=== PATIENT | male | born 2000 ===

== ENCOUNTER 2024-04-20 16:26 | Outpatient (CLI) | payer OTHER, SELFPAY ==
[2024-04-20 17:14] LABS: Hematocrit 49.3 % (42.0-52.0); Hemoglobin 16.3 g/dL (14.0-18.0); Mean Corpuscular HGB Conc 33.1 g/dl (32-36); Mean Corpuscular Hemoglobin 27.4 pg (26-34); Mean Platelet Volume 10.4 fl (7.4-10.4); Platelet Count Result 281 k/mm3 (150-375); Red Blood Count 5.94 M/mm3 (4.6-6.20); White Blood Count 10.4 K/mm3 (4.5-10.0)
[2024-04-20 17:59] LABS: Erythrocyte Sedimentation Rate 1 mm/hr (0-20)
[2024-04-20 20:23] LABS: Alanine Aminotransferase 44 U/L (6-50); Albumin Level 4.5 g/dL (3.5-5.1); Alkaline Phosphatase 47 U/L (38-126); Anion Gap 5 mmol/L (4-12); Aspartate Amino Transferase 31 U/L (17-59); Bilirubin,Total 0.7 mg/dL (0.2-1.3); Blood Urea Nitrogen 18 mg/dL (9-20); CRP < 0.5 mg/dL (<1.0); Calcium 9.4 mg/dL (8.4-10.2); Carbon Dioxide 29 mmol/L (22-30); Chloride 103 mmol/L (98-107); Estimated Glomerular Filt Rate > 60; Glucose 87 mg/dL (65-110); Potassium 4.5 mmol/L (3.4-5.0); Sodium 137 mmol/L (137-145)
== END 2024-04-20 16:27 | disposition home or self-care (01) ==
PROVIDERS: Visit Provider Nurse Practitioner
DX: R14.0 Abdominal distension (gaseous) (principal); R10.31 Right lower quadrant pain; R19.8 Other specified symptoms and signs involving the digestive system and abdomen
CPT/HCPCS: 36415; 80053; 82784; 84443; 85027; 85652; 86140; 86364

== ENCOUNTER 2025-04-06 18:32 | Emergency (ER) | payer OTHER, SELFPAY ==
--- NOTE | ~2025-04-06 | XR_ITS ---
EXAMINATION: XR chest 2V 04/06/2025 18:55 INDICATION: Chest pain PROCEDURE: 2 view chest COMPARISON: No prior studies for comparison. FINDINGS: The lungs are clear. The cardiomediastinal silhouette is within normal limits. There are no pleural effusions. There is no pneumothorax suspected. IMPRESSION: 1: NO ACUTE CARDIOPULMONARY DISEASE. Reviewed, dictated and finalized at location O. CAL DRIVER
--- NOTE | 2025-04-06 18:34 | ECG_ITS ---
Test Date: 2025-04-06 18:46:30 Measurements Intervals [place] Rate: 89 P: 66 [place]: 132 QRS: 79 QRSD: 93 T: 60 QT: 331 QTc: 404 Interpretive Statements SINUS RHYTHM MINIMAL Q WAVES- ANTEROLAT/INF LEADS BORDERLINE ECG No previous ECG available for comparison Electronically Signed On 04-06-2025 18:59:42 EDUCATIONAL ADVISER by oJhn Hale D.O.
[2025-04-06 18:59] LABS: Hematocrit 49.1 % (42.0-52.0); Hemoglobin 16.9 g/dL (14.0-18.0); Immature Granulocyte Percent A 0.2 % (0-0.5); Lymphocytes Absolute Auto 4.20 K/mm3 (0.9-3.2); Mean Corpuscular HGB Conc 34.4 g/dl (32-36); Mean Corpuscular Hemoglobin 27.9 pg (26-34); Mean Corpuscular Volume 81.2 fl (80-100); Nucleated Red Blood Cells Absolute Auto 0.000 K/mm3 (0.0-0.012); Nucleated Red Blood Cells Perc 0.0 % (0.0-0.2); Platelet Count Result 297 k/mm3 (150-375); Red Blood Count 6.05 M/mm3 (4.6-6.20); White Blood Count 10.1 K/mm3 (4.5-10.0)
[2025-04-06 19:09] LABS: Alanine Aminotransferase 24 U/L (6-50); Albumin Level 5.0 g/dL (3.5-5.1); Alkaline Phosphatase 46 U/L (38-126); Anion Gap 12 mmol/L (4-12); Aspartate Amino Transferase 32 U/L (17-59); Bilirubin,Total 1.0 mg/dL (0.2-1.3); Blood Urea Nitrogen 17 mg/dL (9-20); Calcium 9.2 mg/dL (8.4-10.2); Carbon Dioxide 24 mmol/L (22-30); Chloride 101 mmol/L (98-107); Estimated Glomerular Filt Rate > 60; Glucose 97 mg/dL (65-110); Lipase 45 U/L (23-300); Potassium 4.1 mmol/L (3.4-5.0); Sodium 137 mmol/L (137-145); Total Protein 8.6 g/dL (6.3-8.2)
[2025-04-06 19:20] VITALS: BP 146/89; PULSE 78; RESP 18; TEMP 36.6; O2SAT 100
[2025-04-06 19:21] LABS: Troponin I < 0.012 ng/mL (0.000-0.034)
[2025-04-06 19:32] LABS: INR 1.0; Prothrombin Time 13.6 Seconds (11.1-14.7)
[2025-04-06 19:33] LABS: Partial Thromboplastin Time 29.2 Seconds (22.3-36.8)
--- NOTE | 2025-04-06 22:00 | ED_ITS ---
HPI - Chest Pain General Chief Complaint: Chest Pain Stated Complaint: left sided chest pain, left arm pain, sob Time Seen by Provider: 04/06/25 20:58 Source: patient Mode of arrival: ambulatory Limitations: no limitations History of Present Illness HPI narrative: This is a 24-year-old male that presents to the ER for several complaints. Reports left sided chest pain, arm pain, shortness of breath. Reports he has had some trouble with anxiety attacks. He has trouble with gas and constipation. Related Data Home Medications ?Medication ?Instructions ?Recorded ?Confirmed ?Last Taken ?Type No Home Medications 04/20/24 Unknown H istory Allergies Allergy/AdvReac Type Severity Reaction Status Date / Time No Known Allergies Allergy Unverified 04/20/24 15:13 Review of Systems 2 Review of Systems: All systems reviewed & are unremarkable except as noted in HPI and below PMFSH Social History Social History Smoking status: Former smoker Exam 2 Narrative: GENERAL: Well-appearing, well-nourished, and in no acute distress. HEAD: Normocephalic, atraumatic. EYES: PERRLA and EOMI. ENT: Nares clear, no rhinorrhea or epistaxis. Mucous membranes moist. Oropharynx without tonsillar hypertrophy exudate or other lesions. Bilateral TMs pearly walker non-bulging NECK: Supple. No adenopathy or masses. CHEST: Clear to auscultation. No respiratory distress. No wheezes rales or rhonchi HEART: Regular rate and rhythm. No murmur heard. Normal peripheral pulses. EXTREMITIES: Normal range of motion. No edema. SKIN: Warm, dry, no rash. NEURO: No focal deficits. Alert and oriented x3. PSYCH: Normal mood and affect Course Vital Signs Vital signs: Vital Signs Temperature 98 F 04/06/25 19:20 Pulse Rate 78 04/06/25 19:20 Respiratory Rate 18 04/06/25 19:20 Blood Pressure 146/89 H 04/06/25 19:20 Pulse Oximetry 100 04/06/25 19:20 Oxygen Delivery Room Air 04/06/25 19:20 Temperature 98 F 04/06/25 19:20 Pulse Rate 78 04/06/25 19:20 Respiratory Rate 18 04/06/25 19:20 Blood Pressure 146/89 H 04/06/25 19:20 Pulse Oximetry 100 04/06/25 19:20 Oxygen Delivery Room Air 04/06/25 19:20 [facility] Narrative Medical decision making narrative: Patient presents the emergency department for episodes of chest pain, shortness of breath, dizziness. Patient patient is afebrile and nontoxic appearing. His vitals are stable. Cbc and metabolic panel without concerning findings. EKG with changes of likely early repolarization, baseline and 3 hour troponin are negative. D-dimer is not elevated. Chest x-ray without acute cardiopulmonary abnormality. Patient updated on his workup and agrees with plan of care. Close follow-up with PCP Differential Diagnosis Differential Diagnosis: Angina, PE anxiety, muscle strain, pleurisy, pneumonia, pneumothorax Lab Data [facility] Lab Attestation statement: I personally reviewed the patient's lab results. 04/06/25 18:51 04/06/25 18:51 Labs: Lab Results 04/06/25 04/06/25 Range/Units 18:51 23:24 WBC 10.1 H (4.5-10.0) K/mm3 RBC 6.05 (4.6-6.20) M/mm3 Hgb 16.9 (14.0-18.0) g/dL Hct 49.1 (42.0-52.0) % MCV 81.2 (80-100) fl MCH 27.9 (26-34) pg MCHC 34.4 (32-36) g/dl RDW 12.7 (11.5-14.5) % Plt Count 297 (150-375) k/mm3 MPV 9.2 (7.4-10.4) fl Immature Gran % (Auto) 0.2 (0-0.5) % Neut % (Auto) 48.3 (45.5-73.1) % Lymph % (Auto) 41.5 (18.3-44.2) % Meade % (Auto) 6.2 (2.6-8.5) % Eos % (Auto) 3.2 (0-4.4) % Baso % (Auto) 0.6 (0.2-1.2) % Lymph # (Auto) 4.20 H (0.9-3.2) K/mm3 Meade # (Auto) 0.6 (0.1-0.6) K/mm3 Eos # (Auto) 0.3 (0-0.3) K/mm3 Baso # (Auto) 0.1 (0.0-0.1) K/mm3 Abs Immat Gran (auto) 0.02 (0.00-0.031) K/mm3 Absolute Neuts (auto) 4.9 (1.3-6.7) K/mm3 Absolute Nucleated RBC 0.000 (0.0-0.012) K/mm3 Nucleated RBC % 0.0 (0.0-0.2) % PT 13.6 (11.1-14.7) Seconds INR 1.0 APTT 29.2 (22.3-36.8) Seconds D-Dimer < 0.27 (<0.48) ug/mL Sodium 137 (137-145) mmol/L Potassium 4.1 (3.4-5.0) mmol/L Chloride 101 (98-107) mmol/L Carbon Dioxide 24 (22-30) mmol/L Anion Gap 12 (4-12) mmol/L BUN 17 (9-20) mg/dL Creatinine 0.80 (0.7-1.3) mg/dL Estim Creat Clear Calc Not Reportable Estimated GFR > 60 (59 - ) Glucose 97 (65-110) mg/dL Calcium 9.2 (8.4-10.2) mg/dL Total Bilirubin 1.0 (0.2-1.3) mg/dL AST 32 (17-59) U/L ALT 24 (6-50) U/L Alkaline Phosphatase 46 (38-126) U/L Troponin I < 0.012 < 0.012 (0.000-0.034) ng/mL Total Protein 8.6 H (6.3-8.2) g/dL Albumin 5.0 (3.5-5.1) g/dL Lipase 45 (23-300) U/L Imaging Data Radiologist's impression: ITS Impressions Chest X-Ray 04/06/25 18:58 IMPRESSION: 1: NO ACUTE CARDIOPULMONARY DISEASE. ECG Data EKG #1: ECG completion date: 04/06/25 normal rate, sinus rhythm, ST elevation (early repolarization) and normal QT Critical Care Time Critical Care Time Critical Care Time: No Discharge Plan Discharge Clinical Impression: Chest pain Qualifiers: Chest pain type: unspecified Qualified Code(s): R07.9 - Chest pain, unspecified Patient Disposition: Home Condition: Stable Instructions: Chest Pain (ED) Additional Instructions: Return to the emergency department if you experience fever, worsening chest pain, shortness of breath, abdominal pain with nausea and vomiting, or any other symptoms that are concerning to you. Follow up with primary care doctor for further evaluation Patient Language: Mohawk Prescriptions: No Action No Home Medications Follow-up/Referrals: Demetrio Ramachandran MD [Physician, Family Practice] PHYSICIAN,QUARRYMAN [Primary Care Provider, Internal Medicine] Quality HEART score for chest pain patients History: slightly suspicious ECG: non specific repolarization disturbance/LBTB/PM Age: < or = to 45 years Risk factors: no risk factors known Troponin: < or = to 1x normal limit Heart score: 1
--- NOTE | 2025-04-06 23:25 | ECG_ITS ---
Test Date: 2025-04-06 23:34:01 Measurements Intervals [place] Rate: 73 P: 55 [place]: 140 QRS: 81 QRSD: 93 T: 67 QT: 362 QTc: 401 Interpretive Statements SINUS RHYTHM MINIMAL Q WAVES- ANTEROLAT/INF LEADS ST ELEVATION IN ANT/INF LEADS, PROBABLY EARLY REPOLARIZATION BASELINE ARTIFACT- I, III, AVR, AVL, V1-V2 BORDERLINE ECG COMPARED WITH PRIOR ECG 04-06-25 18:46 NO SIGNIFICANT CHANGE Electronically Signed On 04-07-2025 09:10:21 RETAIL SHIFT LEADER by John Hale D.O.
[2025-04-06 23:54] LABS: Troponin I < 0.012 ng/mL (0.000-0.034)
== END 2025-04-07 00:29 | disposition home or self-care (01) ==
PROVIDERS: Emergency Medicine; Emergency Provider Physician Assistant
DX: R07.9 Chest pain, unspecified (principal)
CPT/HCPCS: 36415; 71046; 80053; 83690; 84484; 85025; 85380; 85610; 85730; 93005; 99284